=== PATIENT | female | born 1940 | race Caucasian/White ===

== ENCOUNTER 2021-05-19 12:22 | Emergency (ER) | payer MEDICARE, SELFPAY ==
--- NOTE | ~2021-05-19 | XR_ITS ---
EXAMINATION: XR abdomen/kub 1V DATE: 05/19/2021 14:55 INDICATION: Right lower quadrant abdominal pain. Chronic constipation. TECHNIQUE: A supine view of the abdomen on 2 radiographs was obtained. COMPARISON: None. FINDINGS: Relative paucity of bowel gas in the right abdomen. Possible 7.8 cm masslike opacity projecting over the expected location of the lower pole of the right kidney. Moderate amount of stool throughout the colon. No dilated loops of bowel to suggest obstruction. Visualized lung bases are clear. Atheroscler otic aorta. Mild thoracolumbar levoscoliosis with severe spondylosis. IMPRESSION: 1. 7.8 cm masslike opacity in the right abdomen where there is a relative paucity of bowel gas. Diffe rential would include malignancy or large renal cyst. Recommend further evaluation with ultrasound or contrast-enhanced CT. 2. No dilated gas-filled loops of bowel to suggest obstruction. Reviewed, dictated and finalized at location A. IMPRESSION: 1. 7.8 cm masslike opacity in the right abdomen where there is a relative pauci ty of bowel gas. Differential would include malignancy or large renal cyst. Rec ommend further evaluation with ultrasound or contrast-enhanced CT. 2. No dilated gas-filled loops of bowel to suggest obstruction.
[2021-05-19 12:32] VITALS: BP 128/93; PULSE 66; RESP 16; TEMP 36.8; O2SAT 97
--- NOTE | 2021-05-19 14:26 | ED.GENADULT ---
HPI - General Adult General Chief complaint: Abdominal Pain Stated complaint: Abdominal Pain Time Seen by Provider: 05/19/21 14:26 Source: patient and RN notes reviewed Mode of arrival: ambulatory Limitations: no limitations History of Present Illness HPI narrative: 80-year-old female with extensive abdominal surgeries and multiple abdominal hernias presented for complaint of right lower abdominal pain for 3 days. Pain radiates to her back. Described as 'different.' She endorses back pain all the time for which she takes hydrocodone, and endorses chronic constipation as a result. Also endorses hesitancy, stating 'it is harder to go this week.' Hx Paget's disease s/p vulva surgery. She denies nausea, vomiting, diarrhea, dysuria, hematuria, hematochezia, melena, fever or chills. She states she has had 3 colonoscopies in the last 1 to 2 years for GIB. She says she is due for an EGD. Related Data Home Medications Medication Instructions Recorded Confirmed acetaminophen 325 mg capsule 325 mg PO Q6H PRN 01/06/21 05/19/21 baclofen 5 mg tablet 5 mg PO BID 01/06/21 05/19/21 benazepril 40 mg tablet 40 mg PO DAILY 01/06/21 05/19/21 cholecalciferol (vitamin D3) 350 350 mcg PO WEEKLY 01/06/21 05/19/21 mcg (14,000 unit) capsule diltiazem HCl 360 mg 360 mg PO DAILY 01/06/21 05/19/21 capsule,extended release 24 hr fentanyl 50 mcg/hr transdermal 1 patch TRANSDERMAL Q72H 01/06/21 05/19/21 patch ferrous gluconate 240 mg (27 mg 240 mg PO DAILY 01/06/21 05/19/21 iron) tablet hydralazine 25 mg tablet 25 mg PO TID 01/06/21 05/19/21 hydrocodone 5 mg-acetaminophen 325 1 tablet PO QHS PRN 01/06/21 05/19/21 mg tablet omeprazole 20 mg capsule,delayed 20 mg PO DAILY 01/06/21 05/19/21 release ropinirole 1 mg tablet 1 mg PO BID 01/06/21 05/19/21 sertraline 50 mg tablet 50 mg PO DAILY 01/06/21 05/19/21 zolpidem 10 mg tablet 10 mg PO HS 01/06/21 05/19/21 Allergies Allergy/AdvReac Type Severity Reaction Status Date / Time No Known Allergies Allergy Verified 05/19/21 13:44 Review of Systems Review of Systems: CONSTITUTIONAL: Denies body aches, fever, chills EYES: Denies visual changes ENT: Denies rhinorrhea, congestion CARDIOVASCULAR: Denies chest pain, palpitations, or edema. RESPIRATORY: Denies cough or dyspnea. GASTROINTESTINAL: Endorses abdominal pain, denies nausea, vomiting, diarrhea hematochezia, melena, hematemesis GENITOURINARY: Endorses hesitancy, Denies dysuria, hematuria, or CVA tenderness. SKIN: Denies rash, itching, or wounds. MUSCULOSKELETAL: Denies back pain, joint pain, or myalgia. NEUROLOGIC: Denies headache, numbness, tingling, or weakness. PSYCH: Denies mood change All systems reviewed & are unremarkable except as noted in HPI and below PMFSH Family History Family History Father Diabetes mellitus Sibling Family history of congenital heart disease Cerebrovascular accident Family history of malignant neoplasm of thyroid Social History Social History Smoking status: Never smoker Smoking end date: 03/04/99 Alcohol intake: never Comments At time of signature, I have reviewed and agree with nursing past medical, surgical, social and family history unless otherwise noted. Please see nursing chart for further information. There is no relevant family history pertinent to the presenting complaint Exam Narrative: GENERAL: Well-appearing, in no acute distress. HEAD: Normocephalic, atraumatic. EYES: EOMI. Conjunctivae normal. ENT: Mucous membranes pink and moist. NECK: Normal AROM. Supple. CHEST: No respiratory distress. Clear to auscultation. HEART: Regular rate and rhythm. No murmur appreciated. Normal peripheral pulses. ABDOMEN: Abd irregular with multiple reducible herniations; Nontender abdomen, No guarding, rebound tenderness, asymmetry; abd soft, nondistended, normal active bowel
== END 2021-05-19 15:20 | disposition left against medical advice (07) ==
PROVIDERS: Emergency Provider Nurse Practitioner Family
DX: R10.31 Right lower quadrant pain (principal); R39.11 Hesitancy of micturition; G25.81 Restless legs syndrome; I10 Essential (primary) hypertension; K21.9 Gastro-esophageal reflux disease without esophagitis; F41.9 Anxiety disorder, unspecified; F32.A Depression, unspecified
CPT/HCPCS: 74018; 81003; 87086; 99213; G0463